=== PATIENT | female | born 1975 | race Caucasian/White ===

== ENCOUNTER 2017-01-11 12:50 | Emergency (ER) | payer MEDICAID ==
[2017-01-11 12:58] VITALS: BMI 25.8
[2017-01-11 13:03] VITALS: PULSE 72; TEMP 99
--- NOTE | 2017-01-11 13:18 | ED PDOC ---
Arrival/HPI - General Chief Complaint: Lower Extremity Problem/Injury Time Seen by Provider: 01/11/17 13:12 Historian: Patient - History of Present Illness Narrative History of Present Illness (Text): 01/11/17 13:09 A 41 year old female presents to the emergency department complaining of bruising to the left lower extremity. Patient reports a week and half ago she was exercising on the stair master when see heard a pop in the left calf. Since the incident the patient has been taking Ibuprofen and placing ice packs to the area. She states she felt as though she was getting better but then yesterday when she looked at the leg she noticed bruising down the leg all the way to the feet. She denies any shortness of breath, prolonged immobilization or any other complaints at this time. Not currently on control pills or with any chest pain. PMD: Dr. Valdes Time/Duration: > week Symptom Onset: Gradual Symptom Course: Other Quality: Other Activities at Onset: Significant Context: Other Past Medical History - Provider Review Nursing Documentation Reviewed: Yes - Infectious Disease Hx of Infectious Diseases: None - Past Medical History Past Medical History: No Previous - Cardiac Hx Cardiac Disorders: Yes Hx Hypertension: Yes - Pulmonary Hx Respiratory Disorders: No - Neurological Hx Neurological Disorder: Yes Hx Migraine: Yes - HEENT Hx HEENT Disorder: No - Renal Hx Renal Disorder: No - Endocrine/Metabolic Hx Endocrine Disorders: No - Hematological/Oncological Hx Blood Disorders: No - Integumentary Hx Dermatological Disorder: No - Musculoskeletal/Rheumatological Hx Musculoskeletal Disorders: No - Gastrointestinal Hx Gastrointestinal Disorders: No - Genitourinary/Gynecological Hx Genitourinary Disorders: No - Psychiatric Hx Psychophysiologic Disorder: Yes Hx Anxiety: Yes Hx Depression: Yes Hx Substance Use: No - Past Surgical History Past Surgical History: No Previous - Anesthesia Hx Anesthesia: No - Suicidal Assessment Feels Threatened In Home Enviroment: No Family/Social History - Physician Review Nursing Documentation Reviewed: Yes Family/Social History: No Known Family HX Smoking Status: Never Smoked Hx Alcohol Use: No Hx Substance Use: No Allergies/Home Meds Allergies/Adverse Reactions: Allergies No Known Allergies Allergy (Verified 01/11/17 12:58) Home Medications: Home Meds Medication Instructions Recorded Confirmed No Known Home Med 01/11/17 01/11/17 Review of Systems - Physician Review All systems were reviewed & negative as marked: Yes - Review of Systems Respiratory: absent: SOB Musculoskeletal: Other (bursing to the left lower extremity) Physical Exam - Physical Exam Narrative Physical Exam (Text): Constitutional: No acute distress. Head: Normocephalic. Atraumatic. Eyes: PERRL. ENT: Moist mucous membranes. Neck: Supple. Cardiovascular: Regular rate. Chest: No tenderness. Respiratory: Clear to auscultation bilaterally. GI: Soft. Nontender. Nondistended. Back: No CVA tenderness. Musculoskeletal: No tenderness of extremities. Ecchymosis to the posterior left lower extremity extending down to the foot. No bony tenderness. Full range of motion actively and passively. Skin: Ecchymosis as above. Neurologic: Alert, no focal deficit. Vital Signs Reviewed: Yes Vital Signs Temp Pulse Resp BP Pulse Ox 01/11/17 15:32 72 18 123/73 98 01/11/17 12:58 99 F 72 16 153/96 H 100 Temperature: Afebrile Blood Pressure: Hypertensive Pulse: Regular Respiratory Rate: Normal Appearance: Positive for: Well-Appearing, Non-Toxic, Comfortable Pain Distress: None Mental Status: Positive for: Alert and Oriented X 3 Medical Decision Making ED Course and Treatment: 01/11/17 13:09 Impression: A 41 year old female with ecchymosis and swelling to the left lower extremity. Differential Diagnosis include but are not limited to: DVT vs. muscle tear vs. fracture Plan: -- Left Tibia Fibula X-ray -- Left lower extremity duplex Ultrasound -- Reassess and disposition Prior Visits: Notes and results from previous visits were reviewed. The patient last presented to the emergency department on 01/27/16 for evaluation of restrosternal tightness associated with palpitations. Progress Notes: 01/11/17 14:25 Ultrasound called to notify the emergency department, the patient ultrasound is negative for DVT. 01/11/17 15:08 XR negative for fracture or dislocation. Patient in no distress. Will discharge to PMD, recommended f/u with Ortho for further evaluation of soft tissue injury. Instructed to return to the ER for worsening pain, numbness, weakness, tense skin, chest pain, dyspnea, or any other problem. - RAD Interpretation Radiology Orders: 01/11/17 13:12 TIBIA FIBULA LEFT [RAD] Stat DUPLEX LOWER EXTRM VEIN LEFT [US] Stat - Scribe Statement The provider has reviewed the documentation as recorded by the Afsaneh Webster Provider Afsaneh Attestation: All medical record entries made by the Afsaneh were at my direction and personally dictated by me. I have reviewed the chart and agree that the record accurately reflects my personal performance of the history, physical exam, medical decision making, and the department course for this patient. I have also personally directed, reviewed, and agree with the discharge instructions and disposition. Disposition/Present on Arrival - Present on Arrival Any Indicators Present on Arrival: No History of DVT/PE: No History of Uncontrolled Diabetes: No Urinary Catheter: No History of Decub. Ulcer: No History Surgical Site Infection Following: None - Disposition Have Diagnosis and Disposition been Completed?: Yes Diagnosis: Leg pain Disposition: HOME/ ROUTINE Disposition Time: 15:08 Patient Plan: Discharge Condition: STABLE Discharge Instructions (ExitCare): Leg Pain (ED) Referrals: Zain Valdes MD [Primary Care Provider] - Follow up with primary Nrom Newman MD [Staff Provider] - Follow up with primary Forms: WORK NOTE
--- NOTE | 2017-01-11 15:01 | RAD ---
PROCEDURE: Radiographs of the left tibia and fibula. HISTORY: pain, swelling, ecchymosis COMPARISON: None available. TECHNIQUE: Frontal and lateral views obtained. FINDINGS: BONES: No fracture or destructive lesion. JOINT SPACES: Unremarkable. OTHER FINDINGS: None. IMPRESSION: Unremarkable radiographs of the left tibia and fibula.
[2017-01-11 15:33] VITALS: BP 123/73; RESP 18; O2SAT 98
--- NOTE | 2017-01-11 16:06 | US ---
PROCEDURE: Left lower extremity venous US HISTORY: Leg pain and swelling. Evaluate for DVT. PHYSICIAN(S): Peter Boo MD. TECHNIQUE: Duplex sonography and color-flow Doppler with graded compression were used to evaluate the deep venous system of the left lower extremity. FINDINGS: The visualized deep venous system of the left lower extremity is sonographically normal and compressible. Normal wave forms and augmentation are seen. There is no sonographic evidence for deep venous thrombosis in the visualized segments of the left lower extremity. IMPRESSION: 1. No sonographic evidence for deep venous thrombosis in the visualized segments of the left lower extremity.
== END 2017-01-11 15:33 | disposition home or self-care (01) ==
LOC: ED 12:50
DX: M79.605 Pain in left leg (principal); I10 Essential (primary) hypertension

== ENCOUNTER 2017-02-03 14:34 | Emergency (ER) | payer MEDICAID ==
[2017-02-03 14:34] VITALS: BMI 25.8
[2017-02-03 15:26] VITALS: RESP 16; TEMP 98.9
[2017-02-03] MEDS ORDERED: Sodium Chloride 0.9% 1,000 ML IV STA (16:10)
--- NOTE | 2017-02-03 16:32 | ED PDOC ---
Arrival/HPI - General Chief Complaint: Abdominal Pain Time Seen by Provider: 02/03/17 15:03 Historian: Patient - History of Present Illness Narrative History of Present Illness (Text): 02/03/17 16:33 Patient otherwise healthy, complains of sudden onset of constant nonradiating right flank pain which started last night, associated with nausea, dysuria, urinary frequency and 3 episodes of diarrhea. Took motrin this AM with mild improvement. Patient states that she has a history of renal stones 2 years ago however the pain she is experiencing is different from her prior, states that she had passed kidney stone without any other intervention. Patient also reports that she did have [employer] last night for dinner, and then a couple of hours later her symptoms started. Otherwise: (-) vomiting, (-) chills, (-) fever , (-) melena, (-) hematochezia. Has no history of prior abdominal surgery or gallbladder disease. PMD Lucio Past Medical History - Provider Review Nursing Documentation Reviewed: Yes - Travel History Have you recently traveled outside [place] w/in the past 3 mons?: No - Patient History Narrative Patient History: (+) h/o renal stones - Infectious Disease Hx of Infectious Diseases: None - Past Medical History Past Medical History: No Previous - Cardiac Hx Cardiac Disorders: No - Pulmonary Hx Respiratory Disorders: No - Neurological Hx Neurological Disorder: Yes Hx Migraine: Yes - HEENT Hx HEENT Disorder: No - Renal Hx Renal Disorder: No - Endocrine/Metabolic Hx Endocrine Disorders: No - Hematological/Oncological Hx Blood Disorders: No - Integumentary Hx Dermatological Disorder: No - Musculoskeletal/Rheumatological Hx Musculoskeletal Disorders: No - Gastrointestinal Hx Gastrointestinal Disorders: No - Genitourinary/Gynecological Hx Genitourinary Disorders: No - Psychiatric Hx Psychophysiologic Disorder: Yes Hx Anxiety: Yes Hx Depression: Yes Hx Substance Use: No - Past Surgical History Past Surgical History: No Previous - Anesthesia Hx Anesthesia: No - Suicidal Assessment Feels Threatened In Home Enviroment: No Family/Social History - Physician Review Nursing Documentation Reviewed: Yes Family/Social History: Hypertension, Other (high cholesterol) Smoking Status: Never Smoked Hx Alcohol Use: No Hx Substance Use: No Allergies/Home Meds Allergies/Adverse Reactions: Allergies No Known Allergies Allergy (Verified 02/03/17 15:21) Review of Systems - Review of Systems Constitutional: Normal. absent: Fatigue, Weight Change, Fevers Respiratory: Normal. absent: SOB, Cough, Sputum Cardiovascular: Normal. absent: Chest Pain, Palpitations, Edema Gastrointestinal: Normal, Nausea. absent: Abdominal Pain, Stool Changes, Vomiting, Appetite Changes Genitourinary Female: Normal, Dysuria, Frequency. absent: Hematuria, Vaginal Discharge Musculoskeletal: Normal. absent: Arthralgias, Back Pain, Neck Pain Skin: Normal. absent: Rash, Pruritis, Skin Lesions Physical Exam - Physical Exam Narrative Physical Exam (Text): 02/03/17 16:31 GENERAL APPEARANCE: Patient is awake, alert, oriented x 3, is comfortable, in mild painful distress. SKIN: Warm, dry; (-) cyanosis. EYES: (-) conjunctival pallor, (-) scleral icterus. ENMT: Mucous membranes dry. NECK: (-) tenderness, (-) stiffness, (-) lymphadenopathy. CHEST AND RESPIRATORY: (-) rales, (-) rhonchi, (-) wheezes; breath sounds equal bilaterally. HEART AND CARDIOVASCULAR: (-) irregularity; (-) murmur, (-) gallop. ABDOMEN AND GI: (-) distention. Bowel sounds active; (+) tenderness in R flank , (-) guarding, (-) rebound, (-) palpable masses, (-) CVA tenderness. EXTREMITIES: (-) deformity, (-) edema, (+) distal pulses. NEURO AND PSYCH: Mental status as above; (-) focal findings. Vital Signs Temp Pulse Resp BP Pulse Ox 02/03/17 18:50 91 H 16 158/85 H 99 02/03/17 15:21 98.9 F 95 H 16 163/90 H 98 Medical Decision Making ED Course and Treatment: 02/03/17 16:29 41 yo F otherwise healthy, presents with sudden onset of right flank pain associated with urinary frequency, dysuria, nausea and diarrhea which started last night. Based on history to rule out renal colic, UTI versus pyelonephritis , possible gastroenteritis. Plan: -- Labs -- IV fluids -- Urinalysis -- Toradol / Zofran -- Reassess and disposition -- CT AP w/o contrast 02/03/17 17:56 Uhcg (-). Labs reviewed, WBC is 12, pt noted to have UTI. Rocephin [address] results show no obstructing stone. On re-evaluation, patient reports significant improvement of pain, denies any flank or abdominal pain, and nausea. Tolerating po fluids. Abdomen soft with no tenderness, no guarding, no flank / CVA tenderness. Diagnostic results discussed with the patient in great detail. Based on history, exam and diagnostic results plan will be for outpatient follow -up with PMD. Patient is not , has no obstructing stone, has no comorbid diseases and is tolerating po fluids, hence can follow up as an outpatient. Prescription provided. Patient states she fully agrees with and understands discharge instructions. States that she agrees with the plan and disposition. Verbalized and repeated discharge instructions and plan. I have given the patient opportunity to ask any additional questions. Follow up with primary care physician in 1-2 days without fail. Advised to take medication as prescribed. Return to the emergency room at any time for any new or worsening symptoms. - Lab Interpretations Lab Results: 02/03/17 16:27 02/03/17 17:30 Lab Results 02/03/17 17:30: Sodium 137, Potassium 3.6, Chloride 104, Carbon Dioxide 24, Anion Gap 13, BUN 10, Creatinine 0.7, Est GFR ( Amer) > 60, Est GFR (Non- Af Amer) > 60, Random Glucose 83, Calcium 9.0, Total Bilirubin 0.9, AST 36, ALT 37, Alkaline Phosphatase 85, Total Protein 7.0, Albumin 4.0, Globulin 3.0, Albumin/Globulin Ratio 1.3 02/03/17 16:27: WBC 12.9 H D, RBC 4.94, Hgb 14.8, Hct 42.9, MCV 86.8, MCH 30.0, MCHC 34.5, RDW 12.8, Plt Count 204, MPV 9.7, Gran % 80.3 H, Lymph % (Auto) 14.7 L, [place] % (Auto) 4.6, Eos % (Auto) 0.2 L, Baso % (Auto) 0.2, Gran # 10.36 H, Lymph # 1.9, Kern # 0.6, Eos # 0.0, Baso # 0.02 02/03/17 16:20: Urine Color Yellow, Urine Appearance Clear, Urine pH 5.5, Ur Specific [place] 1.020, Urine Protein 100 H, Urine Glucose (UA) Negative, Urine Ketones Trace H, Urine Blood Large H, Urine Nitrate Negative, Urine Bilirubin Negative, Urine Urobilinogen 0.2, Ur Leukocyte Esterase Large H, Urine RBC 25 - 30, Urine WBC 25 - 30, Ur Epithelial Cells 4 - 5, Amorphous Sediment Few, Urine Bacteria Many, Urine Other Uyeast I have reviewed the lab results: Yes (Pt with (+) UTI) - RAD Interpretation Narrative RAD Interpretations (Text): 02/03/17 17:26 CT A/P w/o contrast: FINDINGS: There is limited evaluation of the solid organs without the administration of IV contrast. LOWER THORAX: No visible consolidation, pleural effusion, or pneumothorax. LIVER: Unremarkable unenhanced appearance. GALLBLADDER AND BILE DUCTS: Unremarkable unenhanced appearance. PANCREAS: Unremarkable unenhanced appearance. SPLEEN: Unremarkable unenhanced appearance. ADRENALS: Unremarkable unenhanced appearance. KIDNEYS AND URETERS: Two punctate right lower pole renal calculi measuring no greater than 4 mm. No obstructing calculus evident. No hydronephrosis. Punctate calcifications within the right pelvis presumed to reflect tiny phleboliths rather then distal ureteral calculi; these were evident on prior study as well. BLADDER: See above. REPRODUCTIVE: Uterus is present. APPENDIX: No secondary signs of acute appendicitis. BOWEL: The stomach is nondistended. Lack of oral contrast limits evaluation for bowel pathology. The bowel loops appear within normal limits of caliber without evidence of intestinal obstruction. Mild to moderate constipation. PERITONEUM: No significant free fluid. No definite free air. LYMPH NODES: No bulky lymphadenopathy identified. VASCULATURE: No aortic aneurysm. BONES: No acute osseous abnormality is detected. OTHER FINDINGS: None. IMPRESSION: Nonobstructing right renal calculi. Mild to moderate constipation. Probable right ovarian cyst. Suggest further evaluation with pelvic ultrasound. Additional findings as above. Radiology Orders: 02/03/17 16:09 ABD & PELVIS W/O PO OR IV CONT [CT] Stat - Medication Orders Current Medication Orders: Discontinued Medications Sodium Chloride (Sodium Chloride 0.9%) 1,000 mls @ 1,000 mls/hr IV .Q1H STA Stop: 02/03/17 17:09 Last Admin: 02/03/17 16:39 Dose: 1,000 mls/hr Ceftriaxone Sodium (Rocephin 1 Gram Ivpb) 1 gm in 100 mls @ 200 mls/hr IVPB STAT STA PRN Reason: Protocol Stop: 02/03/17 17:53 Last Admin: 02/03/17 17:33 Dose: 200 mls/hr Ketorolac Tromethamine (Toradol) 30 mg IVP STAT STA Stop: 02/03/17 16:10 Last Admin: 02/03/17 16:33 Dose: 30 mg Ondansetron HCl (Zofran Inj) 4 mg IVP STAT STA Stop: 02/03/17 16:10 Last Admin: 02/03/17 16:32 Dose: 4 mg - PA / [employer] / Resident Statement / has reviewed & agrees with the documentation as recorded. Disposition/Present on Arrival - Present on Arrival Any Indicators Present on Arrival: No History of DVT/PE: No History of Uncontrolled Diabetes: No Urinary Catheter: No History of Decub. Ulcer: No History Surgical Site Infection Following: None - Disposition Have Diagnosis and Disposition been Completed?: Yes Diagnosis: Acute pyelonephritis Disposition: HOME/ ROUTINE Disposition Time: 17:59 Patient Plan: Discharge Condition: IMPROVED Discharge Instructions (ExitCare): Acute Pyelonephritis (ED) Print Language: SWEDISH Additional Instructions: Thank you for letting us take care of you today. You were treated for acute pyelonephritis. The emergency medical care you received today was directed at your acute symptoms. If you were prescribed any medication, please fill it and take as directed. It may take several days for your symptoms to resolve. Return to the Emergency Department if your symptoms worsen, do not improve, or if you have any other problems. Please contact your doctor in 2 days for re-evaluation and follow up. Bring any paperwork you were given at discharge with you along with any medications you are taking to your follow up visit. Our treatment cannot replace ongoing medical care by a primary care provider (PCP) outside of the emergency department. Thank you for allowing the [facility] team to be part of your care today. Prescriptions: Ciprofloxacin [Cipro] 500 mg PO BID #14 tab Referrals: Zain Valdes MD [Primary Care Provider] - Follow up with primary Forms: WORK NOTE
[2017-02-03 16:33] LABS: PH,URINE 5.5 (4.7-8.0); URINE BILIRUBIN NEGATIVE (NEGATIVE); URINE BLOOD LARGE (NEGATIVE); URINE GLUCOSE (UA) NEGATIVE (NEGATIVE); URINE KETONE TRACE mg/dL (NEGATIVE); URINE LEUKOCYTE ESTERASE LARGE Leu/uL (NEGATIVE); URINE PROTEIN 100 mg/dL (<30 mg/dL); URINE UROBILINOGEN 0.2 E.U./dL (<1 E.U./dL)
[2017-02-03 16:38] LABS: URINE APPEARANCE CLEAR (CLEAR); URINE COLOR YELLOW (YELLOW)
[2017-02-03 16:49] LABS: ADD MANUAL DIFF? NO
[2017-02-03 16:52] LABS: BASO # 0.02 K/mm3 (0.0-2.0); BASO % 0.2 % (0.0-3.0); EOS % 0.2 % (1.5-5.0); GRAN # 10.36 (1.4-6.5); GRAN % 80.3 % (50.0-68.0); HEMATOCRIT 42.9 % (36.0-48.0); LYMPH # 1.9 (1.2-3.4); LYMPH % 14.7 % (22.0-35.0); MEAN CELL VOLUME 86.8 fL (80.0-105.0); MEAN CORPUSCULAR HGB CONC 34.5 g/dl (31.0-37.0); MEAN PLATELET VOLUME 9.7 fl (7.0-11.0); MONO # 0.6 (0.1-0.6); MONO % 4.6 % (1.0-6.0); PLATELET COUNT 204 10^3/uL (120.0-450.0); RED CELL DISTRIBUTION WIDTH 12.8 % (11.5-14.5); WHITE BLOOD COUNT 12.9 10^3/ul (4.5-11.0)
[2017-02-03 16:52] LABS: URINE BACTERIA MANY (NEG); URINE RBC 25 - 30 /hpf (0-2); URINE WBC 25 - 30 /hpf (0-6)
[2017-02-03 16:53] LABS: URINE AMORPHOUS SEDIMENT FEW
--- NOTE | 2017-02-03 17:19 | CT ---
PROCEDURE: CT Abdomen and Pelvis without Oral or IV contrast. HISTORY: R flank pain, r/o renal colic COMPARISON: CT abdomen and pelvis with contrast performed 01/27/16. TECHNIQUE: Contiguous axial images of the abdomen and pelvis. No oral or IV contrast administered. Coronal and Sagittal reformats generated and reviewed. Radiation dose: Total exam DLP = 573.37 mGy-cm. This CT exam was performed using one or more of the following dose reduction techniques: Automated exposure control, adjustment of the mA and/or kV according to patient size, and/or use of iterative reconstruction technique. FINDINGS: There is limited evaluation of the solid organs without the administration of IV contrast. LOWER THORAX: No visible consolidation, pleural effusion, or pneumothorax. LIVER: Unremarkable unenhanced appearance. GALLBLADDER AND BILE DUCTS: Unremarkable unenhanced appearance. PANCREAS: Unremarkable unenhanced appearance. SPLEEN: Unremarkable unenhanced appearance. ADRENALS: Unremarkable unenhanced appearance. KIDNEYS AND URETERS: Two punctate right lower pole renal calculi measuring no greater than 4 mm. No obstructing calculus evident. No hydronephrosis. Punctate calcifications within the right pelvis presumed to reflect tiny phleboliths rather then distal ureteral calculi; these were evident on prior study as well. BLADDER: See above. REPRODUCTIVE: Uterus is present. APPENDIX: No secondary signs of acute appendicitis. BOWEL: The stomach is nondistended. Lack of oral contrast limits evaluation for bowel pathology. The bowel loops appear within normal limits of caliber without evidence of intestinal obstruction. Mild to moderate constipation. PERITONEUM: No significant free fluid. No definite free air. LYMPH NODES: No bulky lymphadenopathy identified. VASCULATURE: No aortic aneurysm. BONES: No acute osseous abnormality is detected. OTHER FINDINGS: None. IMPRESSION: Nonobstructing right renal calculi. Mild to moderate constipation. Probable right ovarian cyst. Suggest further evaluation with pelvic ultrasound. Additional findings as above.
[2017-02-03] MEDS ORDERED: cefTRIAXone 1 gm 1 GM/100 ML BAG IVPB STA (17:24)
[2017-02-03 18:08] LABS: ALB/GLOB RATIO 1.3 (1.1-1.8); ALKALINE PHOSPHATASE 85 U/L (38-133); ALT/SGPT 37 U/L (7-56); AST/SGOT 36 U/L (15-39); BILIRUBIN,TOTAL 0.9 mg/dL (0.2-1.3); BLOOD UREA NITROGEN 10 mg/dL (7-21); CARBON DIOXIDE 24 mmol/L (21-33); CHLORIDE 104 mmol/L (98-107); GFR AFRICAN-AMERICAN > 60; GLUCOSE,RANDOM 83 mg/dL (70-110); POTASSIUM 3.6 mmol/L (3.6-5.0); SODIUM 137 mmol/L (132-148)
[2017-02-03 20:00] VITALS: BP 158/85; PULSE 91; O2SAT 99
== END 2017-02-03 18:50 | disposition home or self-care (01) ==
LOC: ED 14:34
DX: N10 Acute pyelonephritis (principal)
CPT/HCPCS: 74176; 80053; 81001; 85025; 87086; 87181; 96374; 96375; 99283; J0696; J1885; J2405; J7040